=== PATIENT | male | born 1935 | race Caucasian/White ===

== ENCOUNTER → 2018-09-26 | Emergency (ER) | payer OTHER ==
[~2018-09-26] VITALS: Ht 167.6 cm; Wt 68.0 kg
== END | disposition home or self-care (01) ==
LOC: ER 14:09
DX: M54.5 Low back pain (principal)

== ENCOUNTER 2019-05-02 16:05 | Emergency (ER) | payer OTHER ==
[~2019-05-02] VITALS: Ht 175.3 cm; Wt 74.8 kg
== END 2019-05-02 19:41 | disposition home or self-care (01) ==
LOC: ER 16:05
DX: L29.0 Pruritus ani (principal)

== ENCOUNTER 2019-07-09 10:58 | Emergency (ER) | payer OTHER ==
[~2019-07-09] VITALS: Ht 172.7 cm; Wt 86.2 kg
== END 2019-07-09 17:41 | disposition home or self-care (01) ==
LOC: ER 10:58
DX: R53.81 Other malaise (principal)

== ENCOUNTER 2019-08-06 11:55 | Outpatient (CLI) | payer OTHER | END 2019-08-06 12:00 | disposition home or self-care (01) | LOC: RAD 11:55 | DX: M54.5 Low back pain (principal); E03.8 Other specified hypothyroidism; Z01.810 Encounter for preprocedural cardiovascular examination; E78.89 Other lipoprotein metabolism disorders; E55.9 Vitamin D deficiency, unspecified; I11.9 Hypertensive heart disease without heart failure; F41.8 Other specified anxiety disorders; Z12.11 Encounter for screening for malignant neoplasm of colon; M54.14 Radiculopathy, thoracic region; M15.8 Other polyosteoarthritis; M81.0 Age-related osteoporosis without current pathological fracture ==

== ENCOUNTER → 2020-07-06 | Outpatient (CLI) | payer OTHER | END | disposition home or self-care (01) | LOC: OFIC 805 11:57 | PROVIDERS: ATTEND Otolaryngology Otology & Neurotology | DX: H90.3 Sensorineural hearing loss, bilateral (principal); H61.23 Impacted cerumen, bilateral ==

== ENCOUNTER 2021-01-14 14:06 | Emergency (ER) | payer OTHER ==
[~2021-01-14] VITALS: Ht 175.3 cm; Wt 76.2 kg
== END 2021-01-14 19:20 | disposition home or self-care (01) ==
LOC: ER 14:06
DX: K59.09 Other constipation (principal)

== ENCOUNTER → 2021-03-23 | Emergency (ER) | payer OTHER ==
[~2021-03-23] VITALS: Ht 167.6 cm; Wt 76.2 kg
[~2021-03-23] MED LIST: DOXAZOSIN MESYLA1 GM MC; KAPSPARGO SPRIN25 MG PO; SKELAGESIC PO
== END | disposition home or self-care (01) ==
LOC: ER 12:01
DX: M47.896 Other spondylosis, lumbar region (principal); M54.5 Low back pain; R39.16 Straining to void; Z60.2 Problems related to living alone

== ENCOUNTER 2022-06-15 16:54 | Emergency (ER) | payer OTHER ==
[~2022-06-15] VITALS: Ht 170.2 cm; Wt 81.6 kg
== END 2022-06-15 21:44 | disposition home or self-care (01) ==
LOC: ER 16:54
DX: R53.81 Other malaise (principal); I10 Essential (primary) hypertension; Z95.0 Presence of cardiac pacemaker; Z88.6 Allergy status to analgesic agent; Z88.0 Allergy status to penicillin; H91.13 Presbycusis, bilateral; H91.93 Unspecified hearing loss, bilateral; M19.09 Primary osteoarthritis, other specified site; Z20.822 Contact with and (suspected) exposure to COVID-19